=== PATIENT | male | born 1950 | race Caucasian/White ===

== ENCOUNTER 2018-09-09 11:44 | Emergency (ER) | payer MEDICARE ==
[~2018-09-09] VITALS: Ht 177.8 cm; Wt 78.9 kg
[2018-09-09] MEDS ORDERED: NOHOMEMEDICATIONS (12:07)
[2018-09-09 12:39] LABS: ABSOLUTE BASOPHILS 0.1 thou/uL (0.0-0.2); ABSOLUTE EOSINOPHILS 0.1 thou/uL (0.0-0.7); ABSOLUTE LYMPHOCYTES 1.8 thou/uL (0.8-5.3); ABSOLUTE MONOCYTES 0.6 thou/uL (0.0-1.2); ABSOLUTE NEUTROPHILS 5.3 thou/uL (1.6-8.1); BASOPHILS 1.3 %; EOSINOPHILS 1.4 %; HEMOGLOBIN 19.4 gm/dL (14.0-18.0); LYMPHOCYTES 22.6 %; MCH 32.7 pg (26.0-34.0); MCHC 35.2 g/dL (28.0-37.0); MCV 92.9 fL (80.0-100.0); MPV 9.1 fl. (7.2-11.1); NUCLEATED RBCS 0 /100WBC; PLATELET COUNT* 186 thou/uL (150-400); POLYS 67.7 %; RBC 5.92 mil/uL (4.50-6.00); RDW-CV 13.1 % (10.5-14.5); WBC 7.9 thou/uL (4.0-11.0)
[2018-09-09 13:34] LABS: ANION GAP 4 mmol/L (7-16); BUN 14 mg/dL (7-18); CALCIUM 8.9 mg/dL (8.5-10.1); CHLORIDE 104 mmol/L (98-107); CO2 30 mmol/L (21-32); CREATININE 0.7 mg/dL (0.6-1.3); GLUCOSE 104 mg/dL (70-99); POTASSIUM 3.5 mmol/L (3.5-5.1); SODIUM 138 mmol/L (136-145)
[2018-09-09 13:40] LABS: ALBUMIN 3.9 g/dL (3.4-5.0); ALKALINE PHOSPHATASE 69 U/L (46-116); SGOT 44 U/L (15-37); SGPT 72 U/L (30-65); TOTAL BILIRUBIN 0.9 mg/dL (<0.1-1.0); TOTAL PROTEIN 7.2 g/dL (6.4-8.2); TROPONIN-I LEVEL <0.06 ng/mL (<0.06)
[2018-09-09] MEDS ORDERED: LISINOPRIL10 MG PO (14:35)
[2018-09-09] MEDS ORDERED: CYCLOBENZAPRINE10 MG PO (15:58)
[2018-09-09 16:06] VITALS: BP 174/97
--- NOTE | 2018-09-09 17:06 | EKG ---
[place] [address] ELECTROCARDIOGRAM REPORT Name: DURGA DUFFY [id number] Admission: 09/09/18 Attend Phys: Discharge: 09/09/18 Date of : 52 Report #: [id number] THIS REPORT FOR: //name// [facility] ED Test Date: 2018-09-09 Test Time: 12:03:32 Pat Name: DURGA DUFFY Department: Room: Gender: M Speed Runner: : 1950 Requested By: Yolette Hamilton Order Number: [id number] MD: Daniel Haley Measurements Intervals [place] Rate: 58 P: 60 AL: 157 QRS: 10 QRSD: 93 T: 44 QT: 409 QTc: 402 Interpretive Statements Sinus rhythm Possible anteroseptal infarct, old No previous ECG available for comparison Electronically Signed On 09-09-2018 17:05:54 CDT by Daniel Haley [email or web address] <ELECTRONICALLY SIGNED> By: Daniel Haley MD, [facility] 09/09/18 1705 1203 1203 Daniel Haley MD, FACC /EPI
== END 2018-09-09 16:09 | disposition home or self-care (01) ==
LOC: M.ERS 11:44
PROVIDERS: Nurse Practitioner Family
DX: M54.6 Pain in thoracic spine (principal); I10 Essential (primary) hypertension; F17.210 Nicotine dependence, cigarettes, uncomplicated

== ENCOUNTER 2020-12-19 05:31 | Inpatient (IN) | payer MEDICARE ==
[~2020-12-19] VITALS: Ht 177.8 cm; Wt 82.3 kg
[~2020-12-19 05:31] MED LIST: CYCLOBENZAPRINE10 MG PO; LISINOPRIL10 MG PO; NOHOMEMEDICATIONS
[2020-12-19 05:39] VITALS: BP 229/101
[2020-12-19 05:56] LABS: URINE BLOOD TRACE (Negative); URINE CLARITY CLEAR; URINE COLOR YELLOW; URINE GLUCOSE-RANDOM TRACE (Negative); URINE KETONES NEGATIVE (Negative); URINE LEUKOCYTES-REFLEX NEGATIVE (Negative); URINE NITRITE-REFLEX NEGATIVE (Negative); URINE PROTEIN 2+ (Negative); URINE SPECIFIC GRAVITY 1.025 (1.005-1.030)
[2020-12-19 06:01] LABS: ICTOTEST (BILI CONFIRMATORY) Positive (Negative); URINE BILIRUBIN 1+ (Negative)
[2020-12-19 06:14] LABS: CALCIUM 9.6 mg/dL (8.5-10.1); CREATININE 0.8 mg/dL (0.6-1.3); POTASSIUM 3.8 mmol/L (3.5-5.1)
[2020-12-19 06:17] LABS: BACTERIA-REFLEX 1-9 Few /HPF (None Seen); CASTS None Seen /LPF (None Seen); CRYSTALS None Seen /LPF (None Seen); MUCUS 4-6 Moderate strn/LPF (None Seen); SQUAMOUS 0-3 Few /LPF (0-3); URINE RBC 0-2 Rare /HPF (0-2); URINE WBC-REFLEX 0-5 Rare /HPF (0-5)
[2020-12-19 06:17] LABS: ABSOLUTE LYMPHOCYTES 0.7 thou/uL (0.8-5.3); ABSOLUTE MONOCYTES 0.6 thou/uL (0.0-1.2); ABSOLUTE NEUTROPHILS 7.3 thou/uL (1.6-8.1); BASOPHILS 0.5 %; EOSINOPHILS 0.3 %; HEMOGLOBIN 19.4 gm/dL (14.0-18.0); LYMPHOCYTES 8.2 %; MCH 32.7 pg (26.0-34.0); MCHC 34.7 g/dL (28.0-37.0); MCV 94.1 fL (80.0-100.0); MONOCYTES 7.3 %; MPV 8.7 fl. (7.2-11.1); NUCLEATED RBCS 0 /100WBC; PLATELET COUNT* 190 thou/uL (150-400); POLYS 83.7 %; RBC 5.94 mil/uL (4.50-6.00); WBC 8.7 thou/uL (4.0-11.0)
[2020-12-19 06:18] LABS: TOTAL BILIRUBIN 3.8 mg/dL (<0.1-1.0); TOTAL PROTEIN 7.8 g/dL (6.4-8.2)
--- NOTE | 2020-12-19 06:57 | NUR ---
assumed care of pt at this time.
--- NOTE | 2020-12-19 07:53 | NUR ---
Sandra notified upon pt return, Sandra will connect pt to monitor
[2020-12-19 10:25] VITALS: BP 190/100
[2020-12-19 10:45] VITALS: BP 198/102
[2020-12-19 11:47] LABS: CALCIUM 8.3 mg/dL (8.5-10.1); CREATININE 0.8 mg/dL (0.6-1.3); POTASSIUM 3.7 mmol/L (3.5-5.1)
[2020-12-19 11:50] LABS: MAGNESIUM 1.8 mg/dL (1.8-2.4); PHOSPHORUS* 2.5 mg/dL (2.5-4.9)
--- NOTE | 2020-12-19 14:17 | EKG ---
[place] [address] ELECTROCARDIOGRAM REPORT Name: RAÚL DUFFY Room: [address] IN [facility].#: [id number] Admission: 12/19/20 Attend Phys: Raúl Ward Discharge: Date of : 52 Date of Service: 12/19/20 0551 Report #: [id number] THIS REPORT FOR: //name// [facility] ED Test Date: 2020-12-19 Test Time: 05:51:46 Pat Name: RAÚL DUFFY Department: Room: [facility] Gender: M Sas Programmer Remote: SHARON : 1950 Requested By: Emory Shah Order Number: [id number] MD: Enmanuel Lockett Measurements Intervals [place] Rate: 54 P: 59 VA: 161 QRS: 20 QRSD: 86 T: 32 QT: 433 QTc: 411 Interpretive Statements Sinus rhythm Probable left atrial enlargement Anteroseptal infarct, old possible Compared to ECG 09/09/2018 12:03:32 No significant changes Electronically Signed On 12-19-2020 14:17:39 VEHICLE ASSEMBLY INSPECTOR by Enmanuel Lockett [email or web address] <ELECTRONICALLY SIGNED> By: Enmanuel Lockett MD, [facility] 12/19/20 1417 0551 0551 Enmanuel Lockett MD, [facility] /EPI
[2020-12-19 16:22] VITALS: BP 153/67
--- NOTE | 2020-12-19 16:50 | NUR ---
PT REMAINED ALERT AND ORIENTED. PT RESTING IN BED. PT DENIES ANY NEEDS AT THIS TIME. PT EDUCATED ON USING CALL LIGHT WHEN NEEDING ASSISTANCE.
[2020-12-19 19:30] VITALS: BP 113/61
[2020-12-20 04:40] LABS: ABSOLUTE BASOPHILS 0.1 thou/uL (0.0-0.2); ABSOLUTE EOSINOPHILS 0.1 thou/uL (0.0-0.7); ABSOLUTE LYMPHOCYTES 1.2 thou/uL (0.8-5.3); ABSOLUTE MONOCYTES 0.9 thou/uL (0.0-1.2); ABSOLUTE NEUTROPHILS 7.1 thou/uL (1.6-8.1); BASOPHILS 0.6 %; EOSINOPHILS 0.7 %; HEMATOCRIT 46.3 % (42.0-52.0); MCH 32.1 pg (26.0-34.0); MCHC 34.5 g/dL (28.0-37.0); MCV 93.2 fL (80.0-100.0); MONOCYTES 9.4 %; MPV 8.7 fl. (7.2-11.1); NUCLEATED RBCS 0 /100WBC; PLATELET COUNT* 164 thou/uL (150-400); POLYS 76.3 %; RBC 4.96 mil/uL (4.50-6.00); RDW-CV 13.2 % (10.5-14.5); WBC 9.4 thou/uL (4.0-11.0)
[2020-12-20 04:45] LABS: HEMOGLOBIN 15.9 gm/dL (14.0-18.0)
[2020-12-20 05:06] LABS: ALBUMIN 2.8 g/dL (3.4-5.0); CALCIUM 7.8 mg/dL (8.5-10.1); CREATININE 0.8 mg/dL (0.6-1.3); DIRECT BILIRUBIN 5.1 mg/dL (<0.1-0.3); MAGNESIUM 1.7 mg/dL (1.8-2.4); PHOSPHORUS* 1.7 mg/dL (2.5-4.9); POTASSIUM 3.5 mmol/L (3.5-5.1); TOTAL BILIRUBIN 6.8 mg/dL (<0.1-1.0); TOTAL PROTEIN 5.6 g/dL (6.4-8.2)
[2020-12-20 08:08] LABS: HEPATITIS B SURFACE AG Negative (Negative)
--- NOTE | 2020-12-20 08:30 | NUR ---
REPORT RECEIVED FROM PREVIOUS RN. INTRODUCED SELF. PT IV AND GOWN FOUND AT BEDSIDE. PT NOT IN ROOM. SECURITY AND ANIMAL TECH NOTIFIED.
--- NOTE | 2020-12-20 09:10 | NUR ---
PT NOT FOUND IN ROOM. SURGEON UNABLE TO FIND PT. WENT TO PTS ROOM AND HE IS NOT THERE. SECURITY NOTIFIED. HOUSE SUPERVIOSR AWARE. SECURITY LOOKING FOR PT ALSO. IV PUMP STILL ON BUT IV CATHETER TAKEN OUT AND LAYING ON BEDSIDE TABLE.
--- NOTE | 2020-12-20 09:21 | NUR ---
PC TO PT'S NEXT OF [facility]. INFORMED PT LEFT WITHOUT TELLING ANY ONE. PT FAMILY STATES THEY WILL TRY TO CONTACT PATIENT. ALSO, STATES PT IS NOT A FAN OF HOSPITALS. WILL GET AHOLD OF HER BROTHER AND TRY TO GET THE PATIENT TO COME BACK IN. PHONE NUMBER GIVEN. ALSO INFORMED RESEARCH CONSULTANT, SECURITY, BEE BREEDER AWARE PT HAS LEFT. DR. ARREGUIN AWARE PT LEFT.
== END 2020-12-20 09:00 | disposition left against medical advice (07) | DRG 444 ==
LOC: M.ERS 05:31 → M.3W 06:59 → M.TBA-ER 06:59 → M.3W 10:43
PROVIDERS: Family Medicine; Surgery; ADMIT Internal Medicine; ATTEND Internal Medicine
DX: K80.00 Calculus of gallbladder with acute cholecystitis without obstruction (principal); K85.90 Acute pancreatitis without necrosis or infection, unspecified; E44.1 Mild protein-calorie malnutrition; I10 Essential (primary) hypertension; F12.90 Cannabis use, unspecified, uncomplicated; F17.210 Nicotine dependence, cigarettes, uncomplicated; J98.4 Other disorders of lung; E80.6 Other disorders of bilirubin metabolism; Z20.822 Contact with and (suspected) exposure to COVID-19; B18.2 Chronic viral hepatitis C; R74.01 Elevation of levels of liver transaminase levels; Z68.26 Body mass index [BMI] 26.0-26.9, adult; Z53.29 Procedure and treatment not carried out because of patient's decision for other reasons; Z80.1 Family history of malignant neoplasm of trachea, bronchus and lung; Z84.89 Family history of other specified conditions; Z83.6 Family history of other diseases of the respiratory system; Z80.0 Family history of malignant neoplasm of digestive organs

== ENCOUNTER 2020-12-20 12:09 | Inpatient (IN) | payer MEDICARE ==
[~2020-12-20] VITALS: Ht 177.8 cm; Wt 82.1 kg
--- NOTE | ~2020-12-20 | PROC ---
[address] [address] PROCEDURE REPORT Name: DURGA DUFFY Room: [address] IN .R.#: [id number] Admission: 12/20/20 Attend Phys: Zohreh Flaherty Discharge: 12/25/20 Date of : 52 Report #: [id number] THIS REPORT FOR: cc: FAM - No family physician/PCP FAM - No family physician/PCP ~ [facility],Medical Records Staff For GI report, please see the Provation report in Perceptive 7 content. By: 1207Medical Records Staff [facility] /JONATHON
[2020-12-20 12:33] VITALS: BP 160/129
[2020-12-20 13:26] LABS: ABSOLUTE BASOPHILS 0.1 thou/uL (0.0-0.2); ABSOLUTE LYMPHOCYTES 0.9 thou/uL (0.8-5.3); ABSOLUTE MONOCYTES 0.9 thou/uL (0.0-1.2); ABSOLUTE NEUTROPHILS 10.2 thou/uL (1.6-8.1); BASOPHILS 0.4 %; EOSINOPHILS 0.1 %; HEMATOCRIT 49.8 % (42.0-52.0); HEMOGLOBIN 17.1 gm/dL (14.0-18.0); LYMPHOCYTES 7.6 %; MCH 32.5 pg (26.0-34.0); MCHC 34.3 g/dL (28.0-37.0); MCV 94.8 fL (80.0-100.0); MONOCYTES 7.3 %; MPV 8.9 fl. (7.2-11.1); NUCLEATED RBCS 0 /100WBC; PLATELET COUNT* 172 thou/uL (150-400); POLYS 84.6 %; RBC 5.25 mil/uL (4.50-6.00); RDW-CV 13.3 % (10.5-14.5)
[2020-12-20 13:29] LABS: URINE BLOOD NEGATIVE (Negative); URINE CLARITY CLEAR; URINE COLOR YELLOW; URINE GLUCOSE-RANDOM NEGATIVE (Negative); URINE KETONES 2+ (Negative); URINE LEUKOCYTES-REFLEX NEGATIVE (Negative); URINE NITRITE-REFLEX NEGATIVE (Negative); URINE PROTEIN NEGATIVE (Negative); URINE SPECIFIC GRAVITY >= 1.030 (1.005-1.030)
[2020-12-20 13:30] LABS: ICTOTEST (BILI CONFIRMATORY) Positive (Negative); URINE BILIRUBIN 3+ (Negative)
[2020-12-20 13:37] LABS: CALCIUM 8.1 mg/dL (8.5-10.1); CREATININE 0.9 mg/dL (0.6-1.3); POTASSIUM 3.7 mmol/L (3.5-5.1)
[2020-12-20 13:41] LABS: ALBUMIN 3.4 g/dL (3.4-5.0); TOTAL BILIRUBIN 7.3 mg/dL (<0.1-1.0); TOTAL PROTEIN 6.5 g/dL (6.4-8.2)
--- NOTE | 2020-12-20 16:16 | EKG ---
[place] [address] ELECTROCARDIOGRAM REPORT Name: RAÚL DUFFY Room: [facility] ADM IN [facility]#: [id number] Admission: 12/20/20 Attend Phys: Raúl Ward Discharge: Date of : 52 Date of Service: 12/20/20 1325 Report #: [id number] THIS REPORT FOR: //name// [facility] ED Test Date: 2020-12-20 Test Time: 13:25:33 Pat Name: RAÚL DUFFY Department: Room: [facility] Gender: M Database Security Expert: MIREYA : 1950 Requested By: Myrna Frausto Order Number: [id number] MD: Enmanuel Lockett Measurements Intervals [place] Rate: 52 P: 39 NC: 144 QRS: 2 QRSD: 83 T: 3 QT: 428 QTc: 398 Interpretive Statements Sinus rhythm Anteroseptal infarct, old cannot be excluded Baseline wander in lead(s) V1,V2 Compared to ECG 12/19/2020 05:51:46 No significant changes Electronically Signed On 12-20-2020 16:15:59 PEDIATRIC ORTHODONTIST by Enmanuel Lockett [email or web address] <ELECTRONICALLY SIGNED> By: Enmanuel Lockett MD, [facility] 12/20/20 1615 1325 1325 Enmanuel Lockett MD, [facility] /EPI
[2020-12-20 19:46] LABS: CALCIUM 7.7 mg/dL (8.5-10.1); CREATININE 0.7 mg/dL (0.6-1.3); POTASSIUM 3.6 mmol/L (3.5-5.1)
[2020-12-20 19:49] LABS: MAGNESIUM 1.7 mg/dL (1.8-2.4); PHOSPHORUS* 1.9 mg/dL (2.5-4.9)
[2020-12-20 19:50] VITALS: BP 150/92
[2020-12-20 23:30] VITALS: BP 148/68
[2020-12-21 00:04] VITALS: BP 151/64
[2020-12-21 07:07] LABS: ABSOLUTE BASOPHILS 0.1 thou/uL (0.0-0.2); ABSOLUTE EOSINOPHILS 0.1 thou/uL (0.0-0.7); ABSOLUTE LYMPHOCYTES 1.3 thou/uL (0.8-5.3); ABSOLUTE NEUTROPHILS 9.6 thou/uL (1.6-8.1); BASOPHILS 0.8 %; EOSINOPHILS 0.4 %; HEMATOCRIT 46.5 % (42.0-52.0); HEMOGLOBIN 16.1 gm/dL (14.0-18.0); LYMPHOCYTES 10.4 %; MCH 32.4 pg (26.0-34.0); MCHC 34.6 g/dL (28.0-37.0); MCV 93.6 fL (80.0-100.0); MONOCYTES 8.2 %; MPV 9.4 fl. (7.2-11.1); NUCLEATED RBCS 0 /100WBC; PLATELET COUNT* 158 thou/uL (150-400); POLYS 80.2 %; RBC 4.97 mil/uL (4.50-6.00); RDW-CV 13.4 % (10.5-14.5)
[2020-12-21 07:11] LABS: INR 1.1; PROTIME 11.9 Seconds (9.20-11.50)
[2020-12-21 07:13] LABS: ALBUMIN 2.9 g/dL (3.4-5.0); CALCIUM 7.6 mg/dL (8.5-10.1); CREATININE 0.7 mg/dL (0.6-1.3); POTASSIUM 3.4 mmol/L (3.5-5.1); TOTAL BILIRUBIN 4.2 mg/dL (<0.1-1.0); TOTAL PROTEIN 5.8 g/dL (6.4-8.2)
[2020-12-21 07:54] LABS: MAGNESIUM 2.3 mg/dL (1.8-2.4); PHOSPHORUS* 1.8 mg/dL (2.5-4.9)
[2020-12-21 07:57] VITALS: BP 113/89
--- NOTE | 2020-12-21 11:03 | NUR ---
SPOKE WITH PT. HE WAS ALERT AND ORIENTED. HE STATED HIS 25 Y.O.GRANDJACKSONTER LIVES WITH HIM. HE IS INDEPENDENT AND USES NOT DME. NO HX OF HH OR SNF. JUST WANTS TO GET HIS PROBLEM FIGURED OUT AND GET OUR OF HERE. IS SCHEDULED FOR AN ERCP THIS AFTERNOOON. UNDERSTANDS NOTHING TO EAT OR DRINK UNTIL AFTER TEST.
[2020-12-21 14:00] VITALS: BP 160/67
[2020-12-21 15:50] VITALS: BP 160/67
--- NOTE | 2020-12-21 18:36 | NUR ---
PATIENT WAS TAKEN OFF UNIT VIA BED TO PREOP AT APPROX. 1545 FOR EGD/ERCP AND OF THIS TIME, PATIENT HAS YET TO RETURN TO UNIT. PATIENT HAD BEEN NPO SINCE MIDNIGHT, RECEIVED FLUIDS, ABX ORDERED; ALSO RECEIVED IV REPLACEMENT OF POTASSIUM WHICH JOSHUA LEVEL FROM 3.4 TO 3.6. PATIENT DENIED NAUSEA/VOMITING/PAIN PRIOR TO GOING TO PREOP. PATIENT REPORTS HAVING 2-3 BM'S THIS MORNING. PATIENT'S ONLY COMPLAINT WAS WANTING TO EAT/DRINK. PATIENT WILL REQUIRE PHOSPHORUS REPLACEMENT AND THIS NURSE WILL REPORT TO ONCOMING SHIFT NURSE.
[2020-12-21 18:56] VITALS: BP 161/59
--- NOTE | 2020-12-21 19:15 | NUR ---
PATIENT RETURNED TO UNIT FROM PACU AT APPROX. 1856. PATIENT A&OX4, AWAKE AND CONVERSATIONAL. PATIENT DENIES PAIN/NAUSEA OR ANY OTHER NEEDS AT THIS TIME.
[2020-12-21 20:00] VITALS: BP 153/70
[2020-12-22 00:45] VITALS: BP 141/61
[2020-12-22 04:27] VITALS: BP 144/64
--- NOTE | 2020-12-22 04:53 | NUR ---
PT A&O, ON RA. DENIED PAIN. UP INDEPENDENTLY IN THE ROOM. TOLERATED FULL LIQUIDS. NO N/V. PT SLEPT THROUGH THE NIGHT. IVF INFUISING. WILL CONTINUE TO MONITOR.
[2020-12-22 06:52] LABS: ALBUMIN 2.8 g/dL (3.4-5.0); CALCIUM 7.7 mg/dL (8.5-10.1); CREATININE 0.7 mg/dL (0.6-1.3); TOTAL BILIRUBIN 2.4 mg/dL (<0.1-1.0); TOTAL PROTEIN 6.1 g/dL (6.4-8.2)
[2020-12-22 07:16] LABS: ABSOLUTE LYMPHOCYTES 0.5 thou/uL (0.8-5.3); ABSOLUTE MONOCYTES 0.4 thou/uL (0.0-1.2); HEMATOCRIT 46.2 % (42.0-52.0)
[2020-12-22 07:18] LABS: BASOPHILS 0.4 %; HEMOGLOBIN 15.8 gm/dL (14.0-18.0); LYMPHOCYTES 5.8 %; MCH 32.4 pg (26.0-34.0); MCHC 34.3 g/dL (28.0-37.0); MCV 94.3 fL (80.0-100.0); MONOCYTES 4.8 %; MPV 9.4 fl. (7.2-11.1); NUCLEATED RBCS 0 /100WBC; PLATELET COUNT* 157 thou/uL (150-400); RBC 4.89 mil/uL (4.50-6.00); RDW-CV 12.9 % (10.5-14.5)
[2020-12-22 08:50] VITALS: BP 149/64
--- NOTE | 2020-12-22 17:31 | NUR ---
PT A&Ox4. VITALS STABLE. IV PATENT. ON RA. DENIED PAIN, N/V. TOLERATING FULL LIQUID DIET. UP AD GEOVANY. SKYLER SET UP FOR THURSDAY AT 1300 WITH . CALL LIGHT WITHIN REACH. WILL CONTINUE TO MONITOR.
[2020-12-22 20:00] VITALS: BP 137/62
[2020-12-23 05:04] LABS: ABSOLUTE BASOPHILS 0.1 thou/uL (0.0-0.2); ABSOLUTE LYMPHOCYTES 1.7 thou/uL (0.8-5.3); ABSOLUTE MONOCYTES 0.8 thou/uL (0.0-1.2); ABSOLUTE NEUTROPHILS 8.9 thou/uL (1.6-8.1); BASOPHILS 0.6 %; EOSINOPHILS 0.2 %; HEMATOCRIT 45.4 % (42.0-52.0); HEMOGLOBIN 15.4 gm/dL (14.0-18.0); LYMPHOCYTES 14.7 %; MCH 31.9 pg (26.0-34.0); MCHC 33.8 g/dL (28.0-37.0); MCV 94.2 fL (80.0-100.0); MONOCYTES 7.3 %; MPV 9.9 fl. (7.2-11.1); NUCLEATED RBCS 0 /100WBC; PLATELET COUNT* 176 thou/uL (150-400); POLYS 77.2 %; RBC 4.82 mil/uL (4.50-6.00); RDW-CV 13.3 % (10.5-14.5); WBC 11.5 thou/uL (4.0-11.0)
[2020-12-23 05:16] LABS: PREALBUMIN 10.6 mg/dL (18.0-35.7)
[2020-12-23 05:18] LABS: ALBUMIN 2.7 g/dL (3.4-5.0); CALCIUM 7.7 mg/dL (8.5-10.1); CREATININE 0.9 mg/dL (0.6-1.3); POTASSIUM 3.7 mmol/L (3.5-5.1); TOTAL BILIRUBIN 1.8 mg/dL (<0.1-1.0); TOTAL PROTEIN 5.6 g/dL (6.4-8.2)
--- NOTE | 2020-12-23 05:23 | NUR ---
ASSUMED PT'S CARE THIS PM SHIFT. ALERT AND ORIENTED. UP AD GEOVANY. VSS ON RA. MEDS GIVEN PER EMAR. PT SLEPT WELL THIS SHIFT. DENIES PAIN. CALL LIGHT WITHIN REACH. CALL LIGHT WITHIN REACH. WILL CONTINUE TO MONITOR.
[2020-12-23 08:00] VITALS: BP 164/76
[2020-12-23 16:41] VITALS: BP 150/73
--- NOTE | 2020-12-23 18:10 | NUR ---
PT REMAINS ALERT AND ORIENTED. PT DID NOT VOICE PAIN/NAUSEA THIS SHIFT. NO PRN MEDS GIVEN. PT STEADILY AMBULATORY. PT UP TO THE BATHROOM TO VOID. ONE STOOL THIS AM. PT AWARE HE IS NPO AT MIDNIGHT. WILL CONTINUE TO MONITOR.
[2020-12-24 04:42] LABS: ABSOLUTE BASOPHILS 0.1 thou/uL (0.0-0.2); ABSOLUTE EOSINOPHILS 0.1 thou/uL (0.0-0.7); ABSOLUTE LYMPHOCYTES 1.7 thou/uL (0.8-5.3); ABSOLUTE MONOCYTES 0.9 thou/uL (0.0-1.2); ABSOLUTE NEUTROPHILS 6.8 thou/uL (1.6-8.1); BASOPHILS 0.5 %; EOSINOPHILS 1.6 %; HEMATOCRIT 45.8 % (42.0-52.0); HEMOGLOBIN 15.9 gm/dL (14.0-18.0); LYMPHOCYTES 18.2 %; MCH 32.5 pg (26.0-34.0); MCHC 34.8 g/dL (28.0-37.0); MCV 93.4 fL (80.0-100.0); MONOCYTES 9.1 %; MPV 9.4 fl. (7.2-11.1); NUCLEATED RBCS 0 /100WBC; PLATELET COUNT* 183 thou/uL (150-400); POLYS 70.6 %; RDW-CV 13.2 % (10.5-14.5); WBC 9.6 thou/uL (4.0-11.0)
[2020-12-24 04:53] LABS: ALBUMIN 2.8 g/dL (3.4-5.0); CALCIUM 7.9 mg/dL (8.5-10.1); CREATININE 0.8 mg/dL (0.6-1.3); POTASSIUM 3.5 mmol/L (3.5-5.1); TOTAL BILIRUBIN 1.7 mg/dL (<0.1-1.0); TOTAL PROTEIN 6.3 g/dL (6.4-8.2)
[2020-12-24 08:40] VITALS: BP 162/75
[2020-12-24 10:37] VITALS: BP 160/67
--- NOTE | 2020-12-24 11:00 | NUR ---
PT.SCHEDULED FRO LAP ROSA AND LIVER BX TODAY.
[2020-12-24 11:07] LABS: HCV QUANT BY PCR 660000 IU/mL (())
[2020-12-24 15:15] VITALS: BP 170/91
--- NOTE | 2020-12-24 17:15 | NUR ---
PATIENT ARRIVED BACK TO UNIT FROM PACU AT 1715. ALERT AND ORIENTED X 4. VITAL SIGNS STABLE ON 2L NC. PAIN BEING CONTROLLED WITH IV MEDICATION. DENIES NAUSEA AT THIS TIME. LAP SITES TO ABDOMEN CLEAN, DRY, INTACT. HOURLY ROUNDS MAINTAINED THROUGHOUT THE SHIFT. CALL LIGHT WITHIN REACH.
[2020-12-25 05:11] LABS: HEMATOCRIT 46.5 % (42.0-52.0); HEMOGLOBIN 16.3 gm/dL (14.0-18.0); MCH 32.6 pg (26.0-34.0); MCV 93.2 fL (80.0-100.0); MPV 9.6 fl. (7.2-11.1); NUCLEATED RBCS 0 /100WBC; PLATELET COUNT* 209 thou/uL (150-400); RBC 4.99 mil/uL (4.50-6.00); RDW-CV 13.1 % (10.5-14.5)
--- NOTE | 2020-12-25 05:11 | NUR ---
PATIENT SLEPT WELL DURING THIS SHIFT. PT DENIES ENOUGH PAIN TO REQUEST PAIN MEDICATION. PT RATES PAIN 3/10. PT ALSO REFUSING ICE PACK AT THIS TIME. PT ABLE TO REPOSITION HIMSELF IN BED. PT USES URINAL AT BEDSIDE. LAP SITES C/D/I. ANTIBIOTICS INFUSING PER DR ORDER. FREQUENTLY USED ITREMS AND CALL LIGHT WITHIN REACH. SIDERAILS UPX2. WILL CONTINUE TO MONITOR.
[2020-12-25 05:31] LABS: CALCIUM 8.2 mg/dL (8.5-10.1); CREATININE 0.8 mg/dL (0.6-1.3); POTASSIUM 3.8 mmol/L (3.5-5.1); TOTAL BILIRUBIN 1.5 mg/dL (<0.1-1.0); TOTAL PROTEIN 6.5 g/dL (6.4-8.2)
[2020-12-25 05:55] LABS: ABSOLUTE LYMPHOCYTES 0.5 thou/uL (0.8-5.3); ABSOLUTE MONOCYTES 0.4 thou/uL (0.0-1.2); ABSOLUTE NEUTROPHILS 9.1 thou/uL (1.6-8.1); ANISOCYTOSIS 1+; PLATELET ESTIMATE ADEQUATE; POIKILOCYTOSIS 1+
[2020-12-25 08:10] VITALS: BP 183/78
--- NOTE | 2020-12-25 10:45 | NUR ---
PT.HAD LAP ROSA YESTERDAY. PAIN CONTROLLED WITH PAIN MEDS. TOLERATING DIET UP IN ROOM. ON ROOM AIR. PER SURGERY PT.IS TO CONTINUE IV ZOSYN ANOTHER 24 HRS.
[2020-12-25] MEDS ORDERED: OXYCODONE HCL 55 MG PO ×2 (11:36→15:48)
[2020-12-25] MEDS ORDERED: AUGMENTIN 875-1 EACH PO (11:36)
[2020-12-25 12:09] VITALS: BP 179/82
[2020-12-25 14:30] VITALS: BP 183/78
[2020-12-25 16:09] VITALS: BP 183/78
--- NOTE | 2020-12-25 16:35 | NUR ---
PATIENT GIVEN DISCHARGE INSTRUCTIONS, MEDICATIONS REVIEWED, INFORMATION SHEETS FOR AUGMENTIN AND OXYCODONE PROVIDED. PATIENT STATES HE WILL CALL FOR F/U APPTS. WITH GI AND SURGERY. PATIENT LEFT UNIT WITH PERSONAL BELONGINGS VIA W/C, ACCOMPAINED BY NURSING STAFF AT APPROX. 1643.
[2020-12-25 16:45] VITALS: BP 183/78
--- NOTE | 2020-12-26 18:06 | PATH ---
[address] [address] PATHOLOGY RPT PROCEDURE Name: RAÚL DUFFY Room: [address] IN M.R.#: [id number] Admission: 12/20/20 Date of : 52 Discharge: 12/25/20 Report #: [id number] Path Case #: [id number] LCA Accession Number: [id number] . 01 Material submitted: . gastrointestinal site - ANTRAL BIOPSY FOR H.PYLORI . 01 Clinical history: . DUODENAL ULCER . 02 Diagnosis: Antral biopsy: - Mild nonspecific chronic antral gastritis, negative for Helicobacter pylori organisms and dysplasia. . (CLARE:ethan; 12/26/2020) [facility] 12/26/2020 1126 Local . 02 Comment: Special stain: H. pylori immuno . (CLARE:ethan; 12/26/2020) . 02 Electronically signed: . Babatunde Rivera MD, Pathologist NPI- [id number] . 01 Gross description: . The specimen is received in formalin, labeled "Raúl Duffy, antral biopsy for H. pylori, duodenal ulcer". Received is a segment of pale botello soft tissue measuring 0.7 cm in maximum dimensions. The specimen is submitted entirely in cassette A1. (CAA; 12/25/2020) QA/[facility] 12/25/2020 1322 Local . 02 Pathologist provided ICD-10: K29.50 . 02 CPT . 489624, D80888 Specimen Comment: A courtesy copy of this report has been sent to [phone] Specimen Comment: Report sent to Performed at: [address] [id number] MD Eddy Morales MD Phone: [phone] Performed at: [address] [address] PATHOLOGY RPT PROCEDURE Name: RAÚL DUFFY Room: [address]#: [id number] Admission: 12/20/20 Date of : 52 Discharge: 12/25/20 Report #: [id number] Path Case #: [id number] [address] [place] [address] [id number] MD Babatunde Rivera MD Phone: [phone]
--- NOTE | 2020-12-28 10:05 | OP ---
[address] [address] OPERATIVE REPORT Name: DURGA DUFFY Room: [address] IN .R.#: [id number] Admission: 12/20/20 Attend Phys: Zohreh Flaherty Discharge: 12/25/20 Date of : 52 Report #: [id number] THIS REPORT FOR: cc: FAM - No family physician/PCP FAM - No family physician/PCP ~ Christiano Donato DO DATE OF SERVICE: 12/24/2020 PREOPERATIVE DIAGNOSES: Symptomatic cholelithiasis and choledocholithiasis and also hepatitis C. POSTOPERATIVE DIAGNOSES: Symptomatic cholelithiasis and choledocholithiasis and also hepatitis C. PROCEDURE: Laparoscopic cholecystectomy with intraoperative cholangiograms and liver biopsy x 3. SURGEON: Christiano Donato DO CHILDHOOD DEVELOPMENT TEACHER: Demetrius Strauss DO, PGY-1, resident. SECOND LINGO CLEANER: ANIYA Cui. ANESTHESIA: General endotracheal and TAP blocks. ESTIMATED BLOOD LOSS: Less than 20 mL. COMPLICATIONS: None. DESCRIPTION OF PROCEDURE: After obtaining proper consents and discussing risks and complications with the patient, he was taken to the operating room, laid in the supine position, administered general endotracheal anesthetic. He was then prepped and draped in the usual sterile fashion. A timeout was performed. We confirmed the appropriate patient and procedure. Preoperative antibiotics had been given. SCDs were in place. He had received TAP blocks also after administration of general anesthesia prior to draping. We then made a small supraumbilical skin incision using a #11 scalpel blade. This was carried down through the skin into the subcutaneous tissue using electrocautery for hemostasis. Once the fascia was encountered, it was incised along the midline, grasped and elevated with Piyush clamps and divided further. The peritoneum was then bluntly opened using a hemostat. A finger was placed inside the peritoneal cavity to assure that there were no lenore-incisional adhesions. Next, 2-0 Vicryl sutures were placed in a [id number] fashion to secure the Julieta trocar, which was then inserted and insufflation was begun. Once insufflation was complete, full visual inspection of the anterior [place] [address] OPERATIVE REPORT Name: DURGA DUFFY Room: [address]#: [id number] Admission: 12/20/20 Attend Phys: Zohreh Flaherty Discharge: 12/25/20 Date of : 52 Report #: [id number] This revealed a thick-walled tense appearing gallbladder. We then placed the patient in reverse Trendelenburg position, rotated to the left. A 5 mm subxiphoid trocar and two 5 mm right upper quadrant trocars were then inserted. I then attempted to grasp and elevate the gallbladder; however, it was quite tense. We did use an aspiration needle to try to aspirate some fluid out of the gallbladder; however, I was unable to aspirate any more than about 1-2 mL of bloody fluid from within the gallbladder. I then had our health information technician did us a bulldog three 3-prong grasper, which I was able to use to elevate the gallbladder. Once the gallbladder was elevated. I was able to identify Alfreda's pouch and take down the hepatoduodenal ligament. This was quite dense and thick and did take some time to pull this down until I was able to visualize the cystic duct and cystic artery as they coursed into the gallbladder. The cystic duct and cystic artery were identified as well as the common hepatic duct and common bile duct by using immunofluorescence imaging. I clipped the cystic artery and divided it and this allowed for more working room with the cystic duct. I then dissected the cystic duct free and we made a small alva in the cystic duct and then cholangiogram catheter was inserted. Cholangiography was performed, which showed good flow of bile through the cystic duct into the common bile duct. We could also see a portion of the common hepatic duct and the majority of the contrast went through into the duodenum very quickly. Once this was completed, I removed the cholangiogram catheter and then clipped the cystic duct three times proximally. I then divided the cystic duct and then removed the gallbladder from the liver bed using electrocautery. Once this was complete, I placed the gallbladder into an Endopouch. I copiously irrigated the area and assured hemostasis within the wound. Next, we turned our attention to the liver biopsies, which were performed using the spring-loaded core biopsy needle. This was then inserted through the abdominal wall and into the liver and three random biopsies were taken. Electrocautery was used to maintain hemostasis after the biopsies were taken. The biopsies were then placed into formalin and sent for permanent section. Once this was done, we then stopped the insufflation. All air was released, the trocars were all removed. The gallbladder was removed through the umbilical fascial opening. We then closed the umbilical fascia using the 2 previously placed 0 Vicryl sutures plus 2 additional 0 Vicryl sutures. Skin incisions were all closed using 4-0 Monocryl and Dermabond. The patient was awakened in the operating room and transported to recovery room in stable condition. <ELECTRONICALLY SIGNED> By: Christiano Donato DO 12/28/20 1005 1847 1912Amacy Donato DO /jag
--- NOTE | 2021-01-02 15:08 | PATH ---
[address] [address] PATHOLOGY RPT PROCEDURE Name: RAÚL DUFFY Room: [address] IN .R.#: [id number] Admission: 12/20/20 Date of : 52 Discharge: 12/25/20 Report #: [id number] Path Case #: [id number] LCA Accession Number: [id number] . 01 Material submitted: . PART A: liver - LIVER BIOPSY PART B: liver - LIVER BIOPSY PART C: liver - LIVER BIOPSY PART D: gallbladder - GALLBLADDER WITH CONTENTS . 01 Clinical history: . 70-YEAR-OLD MALE WITH A HISTORY OF HCV (GENOTYPE 1b), AND RECENT ABDOMINAL PAIN AND JAUNDICE. CHOLEDOCHOLITHIASIS FOUND AT ERCP. ACUTE CHOLECYSTITIS . 02 Diagnosis: A. 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 - Mild portal edema, ductular reaction and hepatocellular and canalicular bile stasis, compatible with resolving large hepato- biliary duct obstruction. - Steatosis, mild. - Hepatocellular siderosis 3+/4, zonally distributed. . B. Liver, "needle biopsy #2": - Chronic hepatitis with mild to moderate inflammatory activity and bridging septal fibrosis (grade 2-3/4, stage 3/4), compatible with clinical history of HCV. - Mild portal edema, ductular reaction and hepatocellular and canalicular bile stasis, compatible with resolving large hepato- biliary duct obstruction. - Steatosis, mild. - Hepatocellular siderosis 3+/4, zonally distributed. . C. Liver, "needle biopsy #3": - Chronic hepatitis with mild to moderate inflammatory activity and bridging septal fibrosis (grade 2-3/4, stage 3/4), compatible with clinical history of HCV. - Mild portal edema, ductular reaction and hepatocellular and canalicular bile stasis, compatible with resolving large hepato- biliary duct obstruction. - Steatosis, mild. - Hepatocellular siderosis 3+/4, zonally distributed. . D. Gallbladder, excision: - Acute necrotizing cholecystitis, with reactive epithelial atypia, and acute and chronic serositis. - Chronic cholecystitis, with prominent [place] [address] PATHOLOGY RPT PROCEDURE Name: RAÚL DUFFY Room: [address] IN .R.#: [id number] Admission: 12/20/20 Date of : 52 Discharge: 12/25/20 Report #: [id number] Path Case #: [id number] formation. - Lithiasis. (MLK:hemant; 12/31/2020) [facility] 01/01/2021 1403 Local . 02 Comment: The liver biopsy shows several histologic patterns of injury. There are features of a resolving large hepatobiliary duct obstruction, which arises in a background setting of moderately active chronic hepatitis C with bridging septal fibrosis. Lastly, the iron stain shows a pattern of hepatocellular iron deposition which raises the question of a component of hereditary iron overload. Block A3 will be forwarded for a quantitative iron study. Correlation with genetic markers for the HFE markers as well as iron indices would be beneficial. (MLK:hemant; 12/31/2020) . 02 Electronically signed: . Terrance Glez MD, Pathologist NPI- [id number] . 01 Gross description: . A. The specimen is received in formalin, labeled "Raúl Duffy, liver biopsy - 1". Received is a single needle core of orange-botello soft tissue measuring 1.4 cm in length by 0.1 cm in diameter. The specimen is submitted entirely in cassette A1. . B. The specimen is received in formalin, labeled "Raúl Duffy, liver biopsy - 2". Received is a single needle core of orange-botello soft tissue measuring 1.7 cm in length by 0.1 cm in diameter. The specimen is submitted entirely in cassette B1. . C. The specimen is received in formalin, labeled "Raúl Duffy, liver biopsy - 3". Received is a single needle core of orange-botello soft tissue measuring 2.2 cm in length by 0.1 cm in diameter. The specimen is submitted entirely in cassette C1. . D. The specimen is received in formalin, labeled "Raúl Duffy, gallbladder". Received is an intact gallbladder measuring 7.7 x 3.9 x 3.0 cm in greatest dimensions displaying a pale botello to pink-gallardo serosal surface. Opening the specimen reveals a pink-botello, honeycomb mucosa with a gallbladder wall thickness of 0.2 cm. Calculi are present displaying a black and multifaceted appearance, and no masses or lesions are noted grossly. [place] sections, to include the proximal margin, are submitted in cassette D1. (CAA; 12/26/2020) . After initial microscopic examination, additional customer service representative sections are submitted in cassettes D2 [place] [address] PATHOLOGY RPT PROCEDURE Name: CLIVERAÚL Liss Room: [address] IN .R.#: [id number] Admission: 12/20/20 Date of : 52 Discharge: 12/25/20 Report #: [id number] Path Case #: [id number] (CAA; 12/31/2020) QA/[facility] 12/31/2020 1600 Local . 02 Microscopic: . A, B, and C. Several needle core biopsies of the liver are available for review. There is portal based bridging fibrosis. The remnant portal tracts and fibrous bands display a mixed inflammatory infiltrate, with lymphocytes predominating. Lymphoid aggregates are noted. Background inflammatory cells include plasma cells, eosinophils, and histiocytes. Interface activity is variable, but mild to moderate. Interlobular bile ducts demonstrate mild to moderate epithelial injury. There is focal portal edema and scattered ductular reaction. . There is mild macrovesicular steatosis (approximately 10 to 15%). Mild, focal spotty lobular necroinflammatory activity is identified. An occasional apoptotic body is noted. Sinusoidal inflammatory cells consist of lymphocytes and occasional plasma cells. There is zone 3 sinusoidal dilatation identified; however, accompanying significant sinusoidal congestion is not evident. Hepatocellular and canalicular bile stasis is present. . The trichrome stain highlights the bridging of fibrous bands. The reticulin stain shows an overall intact hepatic reticulin framework pattern. The hepatic plates are variable. Some are of appropriate thickness, and others are irregularly thickened, compatible with early regeneration. The PAS stain highlights intracytoplasmic hepatocellular glycogen. The PASD stain shows ceroid laden Kupffer cells. The iron stain highlights 3+/4 hepatocellular siderosis, with the most pronounced deposition in zone 1 with a gradient decrease through zones 2 to 3. . Special stains (A1, B1, C1) - PAS with and without diastase, iron, trichrome, and reticulin (MLK:pit; 12/31/2020) . . 02 Pathologist provided ICD-10: K73.9, K74.00, K76.0, K80.12 . 02 CPT . 414649, 791586, 867034, 222483, 371362, 704593, 637444, 424370, 755009, 039544, 539992, 600158, 294686, 338053, 102449, 937775 Specimen Comment: A courtesy copy of this report has been sent to [phone] Specimen Comment: 1664 Specimen Comment: Report sent to / DR ARREGUIN Specimen Comment: A duplicate report has been generated due to demographic updates. Performed at: 01 [place] [address] PATHOLOGY RPT PROCEDURE Name: RAÚL DUFFY Room: [address] IN M.R.#: [id number] Admission: 12/20/20 Date of : 52 Discharge: 12/25/20 Report #: [id number] Path Case #: [id number] [address] [facility] [address], [place], [place] [id number] MD Eddy Morales MD Phone: [phone] Performed at: [address] [id number] MD Rosario Hernandez MD Phone: [phone]
== END 2020-12-25 16:43 | disposition home or self-care (01) | DRG 417 ==
LOC: M.ERS 12:09 → M.TBA-ER 14:05 → M.3W 14:05
PROVIDERS: Internal Medicine; Internal Medicine Gastroenterology; Physician Assistant; Surgery; ADMIT Internal Medicine; ATTEND Internal Medicine
PROC: 0FC98ZZ Extirpation of Matter from Common Bile Duct, Via Natural or Artificial Opening Endoscopic (ICD-10-PCS; 2020-12-21)
PROC: BF101ZZ Fluoroscopy of Bile Ducts using Low Osmolar Contrast (ICD-10-PCS; 2020-12-21)
PROC: 0DB78ZX Excision of Stomach, Pylorus, Via Natural or Artificial Opening Endoscopic, Diagnostic (ICD-10-PCS; 2020-12-21)
PROC: 0FT44ZZ Resection of Gallbladder, Percutaneous Endoscopic Approach (ICD-10-PCS; principal; 2020-12-24)
PROC: BF502Z0 Other Imaging of Bile Ducts using Fluorescing Agent, Intraoperative (ICD-10-PCS; principal; 2020-12-24)
PROC: 0FB04ZX Excision of Liver, Percutaneous Endoscopic Approach, Diagnostic (ICD-10-PCS; principal; 2020-12-24)
DX: K80.42 Calculus of bile duct with acute cholecystitis without obstruction (principal); K85.90 Acute pancreatitis without necrosis or infection, unspecified; J18.9 Pneumonia, unspecified organism; I10 Essential (primary) hypertension; E83.51 Hypocalcemia; R74.01 Elevation of levels of liver transaminase levels; K83.8 Other specified diseases of biliary tract; K44.9 Diaphragmatic hernia without obstruction or gangrene; K26.9 Duodenal ulcer, unspecified as acute or chronic, without hemorrhage or perforation; Z20.822 Contact with and (suspected) exposure to COVID-19; Z87.891 Personal history of nicotine dependence; Z79.899 Other long term (current) drug therapy

== ENCOUNTER → 2021-05-21 | Outpatient (CLI) | payer MEDICARE ==
[~2021-05-21] MED LIST changes: +AUGMENTIN 875-1 EACH PO; +OXYCODONE HCL 55 MG PO
[2021-05-21 10:31] LABS: CREATININE 0.7 mg/dL (0.6-1.3)
== END ==
LOC: M.LAB 03-14 08:30 → M.PUL 03-14 08:30 → M.CT 03-14 08:30 → M.PUL 04-11 08:30 → M.LAB 04-11 08:30 → M.CT 04-11 09:30 → M.LAB 10:00 → M.CT 11:00
PROVIDERS: ATTEND Internal Medicine Critical Care Medicine
DX: J43.9 Emphysema, unspecified (principal); J98.4 Other disorders of lung; K86.2 Cyst of pancreas; R91.8 Other nonspecific abnormal finding of lung field; K86.89 Other specified diseases of pancreas; F17.200 Nicotine dependence, unspecified, uncomplicated; I10 Essential (primary) hypertension

== ENCOUNTER → 2021-11-19 | Outpatient (CLI) | payer OTHER | LOC: M.CT 08:59 | PROVIDERS: ATTEND Internal Medicine Critical Care Medicine | DX: J92.9 Pleural plaque without asbestos (principal); J43.8 Other emphysema; R91.8 Other nonspecific abnormal finding of lung field ==